=== PATIENT | male | born 1965 | race Caucasian/White ===

== ENCOUNTER → 2021-02-24 | Outpatient (CLI) | payer BC ==
--- NOTE | 2021-02-24 16:25 | RAD ---
EXAM: Chest, 2 views. HISTORY: Hemoptysis. COMPARISON: None. FINDINGS: 2 views of the chest are obtained. There is no infiltrate, pleural effusion or pneumothorax . The heart is normal in size. IMPRESSION: No acute pulmonary finding. Electronically signed by: Celina Murillo MD (02/24/2021 4:23 PM) [id number]
== END ==
LOC: RAD 15:30 → EDBD 15:30
PROVIDERS: ATTEND Physician Assistant Medical
DX: R04.2 Hemoptysis (principal)
CPT/HCPCS: 71046